=== PATIENT | male | born 1970 | race African-American/Black ===

== ENCOUNTER 2018-12-08 19:42 | Emergency (ER) | payer OTHER ==
[~2018-12-08] VITALS: Ht 180.3 cm; Wt 127.0 kg
--- NOTE | 2018-12-08 19:58 | PHYS DOC ---
Past Medical History Past Medical History: Anxiety, GERD, Hypertension, Other (TMJ, disequilibrium) Past Surgical History: No Surgical History Alcohol Use: Rarely Drug Use: None Adult General Chief Complaint Chief Complaint: CHEST PAIN HPI HPI Patient is a 48 year old AA male with a PMH significant for anxiety, GERD, HTN , TMJ, disequilibrium who presents following an episode of chest tightness, shortness of breath, disequilibrium. He was getting out of his car when he suddenly felt off balance, a tightness through his throat and chest, and like he was not able to get a good breath. He denies palpitations, diaphoresis, neck pain, arm pain. Over last several weeks in [place] he has had extensive work up related to his dysphagia/throat tightness and feeling off balanced. Reportedly he had an echo done and stress test that were not concerning. currently working with his PCP to better manage his bp. He was also seen by ENT this morning for laryngoscopy to rule out vocal cord pathology. He reports he has additional testing scheduled to further assess his swallowing. Review of Systems Review of Systems Constitutional: Denies fever or chills [] Eyes: Denies change in visual acuity, redness, or eye pain [] HENT: Denies nasal congestion or sore throat, reports itnermittent dysphagia and throat tightness, reports acid reflux[] Respiratory: Denies cough or shortness of breath [] Cardiovascular: denies palpitations, chest pressure [] GI: Denies abdominal pain, nausea, vomiting, bloody stools or diarrhea [] : Denies dysuria or hematuria [] Musculoskeletal: reports neck and back pain related to football injuries [] Integument: Denies rash or skin lesions [] Neurologic: Denies headache, focal weakness or sensory changes [] Endocrine: Denies polyuria or polydipsia [] Complete systems were reviewed and found to be within normal limits, except as documented in this note. Current Medications Current Medications Current Medications Medications (Trade) Dose Ordered Sig/Geena Start Time Stop Time Status Last Admin Dose Admin Aspirin (Vik Aspirin) 325 mg 1X ONCE 12/08/18 20:00 12/08/18 20:20 DC 12/08/18 20:42 325 MG Iohexol (Omnipaque 350 Mg/ml) 100 ml 1X ONCE 12/08/18 20:30 12/08/18 20:31 DC Lorazepam (Ativan) 0.5 mg 1X ONCE 12/08/18 20:30 12/08/18 20:31 DC 12/08/18 20:42 0.5 MG Sodium Chloride 1,000 ml @ 1,000 mls/hr 1X ONCE 12/08/18 20:00 12/08/18 20:59 DC 12/08/18 20:42 1,000 MLS/HR Allergies Allergies Allergies Coded Allergies Type Severity Reaction Last Updated Verified No Known Drug Allergies 12/08/18 No Physical Exam Physical Exam Constitutional: Well developed, obese, no acute distress, non-toxic appearance. [] HENT: Normocephalic, atraumatic, bilateral external ears normal, oropharynx moist, no oral exudates, anterior septal perforation [] Eyes: PERRLA, EOMI, conjunctiva normal, no discharge. [] Neck: Decreased range of motion, no tenderness, supple [] Cardiovascular:Heart rate regular rhythm, no murmur [] Lungs & Thorax: Bilateral breath sounds clear to auscultation [] Abdomen: Bowel sounds normal, soft, no tenderness, Skin: Warm, dry, no erythema, no rash. [] Back: No tenderness, no CVA tenderness. [] Extremities: No tenderness, ROM intact, no edema. [] Neurologic: Alert and oriented X 3, normal motor function, normal sensory function, no focal deficits noted. [] Psychologic: Affect normal, judgement normal, mood normal. [] Current Patient Data Vital Signs Vital Signs Date Time Temp Pulse Resp B/P (MAP) Pulse Ox O2 Delivery O2 Flow Rate FiO2 12/08/18 19:42 98.6 81 18 149/95 (113) 96 Room Air 98.6 Lab Values Laboratory Tests Test 12/08/18 19:50 12/08/18 20:55 White Blood Count 9.2 x10^3/uL (4.0-11.0) Red Blood Count 5.05 x10^6/uL (4.30-5.70) Hemoglobin 14.7 g/dL (13.0-17.5) Hematocrit 43.5 % (39.0-53.0) Mean Corpuscular Volume 86 fL (79-100) Mean Corpuscular Hemoglobin 29 pg (25-35) Mean Corpuscular Hemoglobin Concent 34 g/dL (31-37) Red Cell Distribution Width 14.0 % (11.5-14.5) Platelet Count 211 x10^3/uL (140-400) Neutrophils (%) (Auto) 38 % (31-73) Lymphocytes (%) (Auto) 53 % (24-48) H Monocytes (%) (Auto) 7 % (0-9) Eosinophils (%) (Auto) 2 % (0-3) Basophils (%) (Auto) 1 % (0-3) Neutrophils # (Auto) 3.5 x10^3uL (1.8-7.7) Lymphocytes # (Auto) 4.9 x10^3/uL (1.0-4.8) H Monocytes # (Auto) 0.6 x10^3/uL (0.0-1.1) Eosinophils # (Auto) 0.2 x10^3/uL (0.0-0.7) Basophils # (Auto) 0.0 x10^3/uL (0.0-0.2) Sodium Level 140 mmol/L (136-145) Potassium Level 3.4 mmol/L (3.5-5.1) L Chloride Level 101 mmol/L (98-107) Carbon Dioxide Level 26 mmol/L (21-32) Anion Gap 13 (6-14) Blood Urea Nitrogen 15 mg/dL (8-26) Creatinine 1.3 mg/dL (0.7-1.3) Estimated GFR (Cockcroft-Gault) 71.9 BUN/Creatinine Ratio 12 (6-20) Glucose Level 117 mg/dL (70-99) H Calcium Level 9.3 mg/dL (8.5-10.1) Magnesium Level 2.0 mg/dL (1.8-2.4) Total Bilirubin 1.0 mg/dL (0.2-1.0) Aspartate Amino Transferase (AST) 26 U/L (15-37) Alanine Aminotransferase (ALT) 32 U/L (16-63) Alkaline Phosphatase 51 U/L (46-116) Creatine Kinase 172 U/L (39-308) Creatine Kinase MB (Mass) 1.4 ng/mL (0.0-3.6) Creatine Kinase MB Relative Index 0.8 % (0-4) Troponin I Quantitative < 0.017 ng/mL (0.000-0.055) FC-Pcf-M-Type Natriuretic Peptide 6 pg/mL (0-124) Total Protein 8.0 g/dL (6.4-8.2) Albumin 4.1 g/dL (3.4-5.0) Albumin/Globulin Ratio 1.1 (1.0-1.7) Lipase 159 U/L (73-393) Prothrombin Time 14.1 SEC (11.7-14.0) H Prothrombin Time INR 1.1 (0.8-1.1) PTT 27 SEC (24-38) D-Dimer (So) < 0.27 ug/mlFEU Laboratory Tests 12/08/18 19:50 Laboratory Tests 12/08/18 19:50 EKG EKG 12/08/18 at 19:46:06 Diffuse T wave inversion No prior EKG for comparison [] Radiology/Procedures Radiology/Procedures []CT arteriogram of the chest. HISTORY: Chest tightness, short of air CT arteriogram of the chest was done using 100 mL Omnipaque 350 contrast. Thyroid is homogeneous. There is no mediastinal adenopathy or pleural effusion. Upper aspect of the liver and spleen are unremarkable. Adrenal glands are normal. Lungs are free of confluent areas of infiltrate. There is a 5 mm nodule on image 101 in the medial right lung base. Fleischner Society guidelines would recommend an optional one-year follow-up for high risk individuals. No other nodule is noted. A pulmonary embolus is not identified. Sagittal and coronal MIP images were reconstructed. IMPRESSION: 1. Negative for pulmonary embolus. 2. No acute infiltrates. 3. Small nodule right lower lobe. PQRS Compliance Statement: One or more of the following individualized dose reduction techniques were utilized for this examination: 1. Automated exposure control 2. Adjustment of the mA and/or kV according to patient size 3. Use of iterative reconstruction technique Electronically signed by: Juliano Lopez MD (12/08/2018 9:50 PM) [facility] DICTATED and SIGNED BY: JULIANO LOPEZ MD DATE: 12/08/182144 Course & Med Decision Making Course & Med Decision Making Pertinent Labs and Imaging studies reviewed. (See chart for details) [] Dragon Disclaimer Dragon Disclaimer This electronic medical record was generated, in whole or in part, using a voice recognition dictation system. Departure Departure Impression: Primary Impression: Chest pain Additional Impression: Pulmonary nodule Disposition: HOME, SELF-CARE Condition: STABLE Referrals: UNKNOWN PCP NAME (PCP) Patient Instructions: Chest Pain (Nonspecific), [id number], Pulmonary Nodule , [id number] Problem Qualifiers Primary Impression: Chest pain Chest pain type: unspecified Qualified Codes: R07.9 - Chest pain, unspecified COURTNEY CERVANTES DO Dec 08, 2018 19:58
[2018-12-08] MEDS ORDERED: ASPIRIN 325 MG TABLET PO ONE (20:00)
[2018-12-08] MEDS ORDERED: IV NORMAL SALINE 1000ML BAG 1,000 ML IV ONE (20:00)
[2018-12-08 20:12] LABS: BASO % 1 % (0-3); EOS # 0.2 x10^3/uL (0.0-0.7); EOS % 2 % (0-3); HEMATOCRIT 43.5 % (39.0-53.0); HEMOGLOBIN 14.7 g/dL (13.0-17.5); LYMPH # 4.9 x10^3/uL (1.0-4.8); LYMPH % 53 % (24-48); MEAN CORPUSCULAR HEMOGLOBIN 29 pg (25-35); MEAN CORPUSCULAR HGB CONC 34 g/dL (31-37); MEAN CORPUSCULAR VOLUME 86 fL (79-100); MONO # 0.6 x10^3/uL (0.0-1.1); MONO % 7 % (0-9); NEUT # 3.5 x10^3uL (1.8-7.7); NEUT % 38 % (31-73); PLATELET COUNT 211 x10^3/uL (140-400); RED BLOOD COUNT 5.05 x10^6/uL (4.30-5.70); WHITE BLOOD COUNT 9.2 x10^3/uL (4.0-11.0)
--- NOTE | 2018-12-08 20:15 | EKG ---
[facility] [address] [place] [address] Test Date: 2018-12-08 Test Time: 19:46:06 Pat Name: LALITHA CONTRERAS Department: Room: Gender: M Cook Dessert: : 1970 Requested By: COURTNEY CERVANTES Order Number: [id number] Reading MD: Bebo No MD Measurements Intervals [place] Rate: 87 P: 56 ND: 178 QRS: 50 QRSD: 82 T: -93 QT: 364 QTc: 443 Interpretive Statements SINUS RHYTHM PROBABLE LVH CANNOT RULE OUT LATERAL ISCHEMIA Electronically Signed On 12-09-2018 8:35:09 [employer] by Bebo No MD
[2018-12-08 20:17] LABS: CALCIUM 9.3 mg/dL (8.5-10.1); CREATININE 1.3 mg/dL (0.7-1.3); GFR 71.9; POTASSIUM 3.4 mmol/L (3.5-5.1)
[2018-12-08 20:23] LABS: ALBUMIN 4.1 g/dL (3.4-5.0); ALBUMIN/GLOBULIN RATIO 1.1 (1.0-1.7)
[2018-12-08] MEDS ORDERED: IOHEXOL 350 MG/ML 100 ML VIAL. IV ONE (20:30)
[2018-12-08 21:26] LABS: PARTIAL THROMBOPLASTIN TIME 27 SEC (24-38); PROTHROMBIN TIME PATIENT 14.1 SEC (11.7-14.0)
[2018-12-08 21:29] LABS: D-DIMER < 0.27 ug/mlFEU (0.00-0.50)
[2018-12-08 21:40] VITALS: BP 146/86
--- NOTE | 2018-12-08 21:55 | RAD ---
CT arteriogram of the chest. HISTORY: Chest tightness, short of air CT arteriogram of the chest was done using 100 mL Omnipaque 350 contrast. Thyroid is homogeneous. There is no mediastinal adenopathy or pleural effusion. Upper aspect of the liver and spleen are unremarkable. Adrenal glands are normal. Lungs are free of confluent areas of infiltrate. There is a 5 mm nodule on image 101 in the medial right lung base. Fleischner Society guidelines would recommend an optional one-year follow-up for high risk individuals. No other nodule is noted. A pulmonary embolus is not identified. Sagittal and coronal MIP images were reconstructed. IMPRESSION: 1. Negative for pulmonary embolus. 2. No acute infiltrates. 3. Small nodule right lower lobe. PQRS Compliance Statement: One or more of the following individualized dose reduction techniques were utilized for this examination: 1. Automated exposure control 2. Adjustment of the mA and/or kV according to patient size 3. Use of iterative reconstruction technique Electronically signed by: Juliano Norris MD (12/08/2018 9:50 PM) [facility]
== END 2018-12-08 22:25 | disposition home or self-care (01) ==
LOC: ER 19:42
DX: R07.89 Other chest pain (principal); R91.1 Solitary pulmonary nodule; K21.9 Gastro-esophageal reflux disease without esophagitis; I10 Essential (primary) hypertension; F41.9 Anxiety disorder, unspecified
CPT/HCPCS: 36415; 71275; 80053; 82553; 83690; 83735; 83880; 84484; 85025; 85379; 85610; 85730; 93005; 96374; 99284; J2060; J7030